=== PATIENT | male | born 1965 | race Caucasian/White ===

== ENCOUNTER 2020-10-21 08:57 | Emergency (ER) | payer OTHER ==
[~2020-10-21] VITALS: Ht 170.2 cm; Wt 66.2 kg
[~2020-10-21 08:57] MED LIST: ALBU0.0912 IH; ATRN INH; AZIT250T3 PO; METH4TAB1 PO
--- NOTE | 2020-10-21 09:22 | NUR ---
Dr. Patel is evaluating the patient in [place].
[2020-10-21] MEDS ORDERED: ALBU0.0912 IH (09:25)
[2020-10-21 09:28] VITALS: BP 130/96
--- NOTE | 2020-10-21 09:33 | NUR ---
Patient discharged with v/s stable. Written and verbal after care instructions given and explained. Patient alert, oriented and verbalized understanding of instructions. Ambulatory with steady gait. All questions addressed prior to discharge. ID band removed. Patient advised to follow up with PMD. Rx of VENTOLIN given. Patient educated on indication of medication including possible reaction and side effects. Opportunity to ask questions provided and answered.
== END 2020-10-21 09:32 | disposition home or self-care (01) ==
LOC: MED 08:57
DX: J45.909 Unspecified asthma, uncomplicated (principal); F17.210 Nicotine dependence, cigarettes, uncomplicated; Z76.0 Encounter for issue of repeat prescription; Z71.6 Tobacco abuse counseling; Z79.899 Other long term (current) drug therapy
CPT/HCPCS: 99281